=== PATIENT | female | born 1935 | race Caucasian/White ===

== ENCOUNTER 2016-12-15 11:07 | Emergency (ER) | payer MEDICARE ==
[~2016-12-15] VITALS: Ht 170.1 cm; Wt 72.6 kg
[~2016-12-15 11:07] MED LIST: ASPIRIN CHEWABL81 MG PO; LIPITOR10 MG PO; SYNTHROID,LEV125 MCG PO; SYNTHROID25 MCG PO; ZETIA10 MG PO
[2016-12-15 12:11] LABS: BASO % 0.5 % (0.0-1.0); EOS % 0.5 % (1.0-4.0); HEMATOCRIT 38.9 % (37.0-47.0); HEMOGLOBIN 12.7 g/dl (12.0-16.0); IG # 0.1 10*3/uL (0.0-0.1); LYMPH # 1.7 10*3/uL (1.3-4.4); LYMPH % 23.4 % (27.0-41.0); MEAN CELL VOLUME 95.6 fl (81.0-99.0); MEAN CORPUSCULAR HGB 31.2 pg (27.0-31.0); MEAN CORPUSCULAR HGB CONC 32.6 g/dl (33.0-37.0); MEAN PLATELET VOLUME 9.9 fl (9.6-12.3); MONO # 0.9 10*3/uL (0.1-1.0); MONO % 12.2 % (3.0-9.0); NEUT # 4.6 10*3/uL (2.3-7.9); NEUT % 62.5 % (47.0-73.0); PLATELET COUNT AUTOMATED 208 10*3/uL (130-400); RED BLOOD COUNT 4.07 10*6/uL (4.10-5.10); RED CELL DISTRI WIDTH 12.5 % (0-14.5); WHITE BLOOD COUNT 7.4 10*3/uL (4.8-10.8)
[2016-12-15 12:31] LABS: ALBUMIN 3.4 gm/dl (3.1-4.5); ALKALINE PHOSPHATASE 101 U/L (45-117); BILIRUBIN, TOTAL 0.3 mg/dl (0.2-1.0); BUN 12 mg/dl (7-24); CARBON DIOXIDE 29 mmol/L (21-32); CHLORIDE 105 mmol/L (98-107); CPK 61 U/L (26-192); EST GLOM FILT AFRICAN AMERICAN > 60 ml/min; GLUCOSE 94 mg/dL (65-99); POTASSIUM 4.1 mmol/L (3.5-5.1); SGOT/AST 10 IU/L (3-35); SGPT/ALT 17 U/L (12-78); SODIUM 141 mmol/L (136-145); TOTAL PROTEIN 7.3 gm/dL (6.4-8.2)
[2016-12-15 12:39] LABS: C-REACTIVE PROTEIN < 0.29 MG/DL (0-0.3); TROPONIN I < 0.015 ng/ml (<0.045)
== END 2016-12-15 14:47 | disposition home or self-care (01) ==
LOC: ED 11:07
PROVIDERS: Internal Medicine
DX: M79.605 Pain in left leg (principal); F03.90 Unspecified dementia, unspecified severity, without behavioral disturbance, psychotic disturbance, mood disturbance, and anxiety; Z79.82 Long term (current) use of aspirin; Z79.899 Other long term (current) drug therapy

== ENCOUNTER 2017-08-31 12:14 | Emergency (ER) | payer MEDICARE ==
[~2017-08-31] VITALS: Ht 170.1 cm; Wt 74.8 kg
== END 2017-08-31 14:50 | disposition home or self-care (01) ==
LOC: ED 12:14
DX: K59.00 Constipation, unspecified (principal); E03.9 Hypothyroidism, unspecified; Z79.899 Other long term (current) drug therapy; Z79.82 Long term (current) use of aspirin

== ENCOUNTER 2017-09-21 21:57 | Inpatient (IN) | payer MEDICARE ==
[~2017-09-21] VITALS: Ht 165.1 cm; Wt 77.1 kg
--- NOTE | ~2017-09-21 | CON ---
[place], [place] REPORT OF CONSULTATION NAME: SYD MONTGOMERY UNIT #: [id number] ROOM: 523 DOCTOR: KERA RODRIGUEZ MD BIRTHDATE: [birth year] DOS: 09/24/2017 CHIEF COMPLAINT: The patient was nonverbal at this time. SUMMARY OF THE VISIT: The patient was interviewed once again in her room. She was resting quietly in bed as she had been previously. At this time, she is much more somnolent than she did appear at my last consult. I did call her name and she made eye contact, but she made no effort this time to speak. She was not agitated in any way. There was no mood lability noted. I see nothing suggestive of auditory or visual hallucinations. She does look perplexed and bewildered and does seem confused. Mental status is limited due to her lack of cooperation and overall level of somnolence. PLAN: I will go ahead and increase the Exelon patch from 4.6 to 9.5 mg a day as this will not impact on her in any way regarding sedation or somnolence. I will lower her Risperdal down to just 0.5 at bedtime. This should lessen the daytime sedation and make her much more interactive. How much of this is medication related versus medicine problem related, it is unclear. Should you require further intervention, feel free to contact me. KERA RODRIGUEZ MD CM:CONSTR:REPORT OF CONSULTATION 1025 09/25/17 0250 interface
--- NOTE | ~2017-09-21 | PR ---
[place], [place] PROGRESS NOTE NAME: SYD MONTGOMERY UNIT #: [id number] ROOM: 523 DOCTOR: RYAN LUCIA MD BIRTHDATE: [birth year] DOS: SUBJECTIVE: The patient is doing well this morning. She knows that she is in the hospital and was eating her breakfast. OBJECTIVE: VITAL SIGNS: Graphic trend shows a pressure 128/70, pulse 103, respirations 20, temperature 100.5. LUNGS: Diminished breath sounds. No wheezes, rales or rhonchi heard. HEART: Regular. ABDOMEN: Obese, soft, nontender. EXTREMITIES: Without any edema. ASSESSMENT AND PLAN: 1. Metabolic encephalopathy, possibly from underlying urinary tract infection. The patient is on IV antibiotics. 2. 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 The patient is agreeable to go to rehabilitation. Social service is looking into placement. RYAN LUCIA MD CM:PNTRANS [id number] RYAN LUCIA MD 09/24/17 0946 interface
--- NOTE | ~2017-09-21 | PR ---
[place], [place] PROGRESS NOTE NAME: SYD MONTGOMERY UNIT #: [id number] ROOM: 523 DOCTOR: RYAN LUCIA MD BIRTHDATE: [birth year] DOS: SUBJECTIVE: The patient is doing fine without any complaints other than some diarrhea this morning. OBJECTIVE: VITAL SIGNS: Graphic trend shows blood pressure of 134/54, pulse of 91, respirations 20, temperature 98.5. LUNGS: Diminished breath sounds, clear. HEART: Regular. ABDOMEN: Obese, soft. EXTREMITIES: Without any edema. LABORATORY DATA: Urine culture shows E. coli, which is sensitive to cephalosporins as well as Cipro. ASSESSMENT AND PLAN: 1. Urinary tract infection, on IV antibiotics. 2. Metabolic encephalopathy, which is resolving. 3. Adult failure to thrive. She will go to [facility] today. 4. Diarrhea, possibly from PENICILLIN. Stool titer will be sent. RYAN LUCIA MD CM:PNTRANS [id number] RYAN LUCIA MD 09/25/17 0950 interface
--- NOTE | ~2017-09-21 | WRIGHTHP ---
[place], [place] PATIENT HISTORY AND PHYSICAL EXAM NAME: SYD MONTGOMERY [facility] #: [id number] UNIT #: [id number] ROOM: 523 DOCTOR: SCOTTY MACKAY MD BIRTHDATE: [birth year] DOS: 09/22/2017 HISTORY OF PRESENT ILLNESS: The patient is an 82-year-old female with a past medical history of: 1. Old age and advanced failure to thrive. 2. History of Alzheimer's type dementia. 3. Benign essential hypertension. 4. Hypothyroidism. 5. Coronary artery disease and stent placement. The patient lives at home with help from her family. She is bedridden and unable to stand up. According to family, she had a mental status change where she became more lethargic and weaker and was brought to the Emergency Department. The patient's medical workup was normal, but she was admitted for mental status changes and for [facility] facility placement. The patient is unable to provide much history after admission, but no complaints of recent chest pain, shortness of breath, GI or urinary symptoms. According to the family, just increased weakness and lethargy. REVIEW OF SYSTEMS: LUNGS: No increasing shortness of breath or wheezing. GASTROINTESTINAL: No nausea, vomiting, diarrhea, constipation. CARDIOVASCULAR: No chest pain or palpitations. FAMILY HISTORY: Noncontributory. ALLERGIES: No known drug allergies. SOCIAL HISTORY: No recent history of smoking cigarettes, alcohol and drug abuse. MEDICATIONS: Rivastigmine, ropinirole, risperidone, simvastatin, aspirin, levothyroxine, Zofran. PHYSICAL EXAMINATION: GENERAL: Awake, unable to provide any history, generalized weakness and advanced disability. LABORATORY DATA: TSH normal. Ammonia level was normal. Troponin I level was normal. Urinalysis without significant signs of infection. Normal serum electrolytes, bilirubin, liver enzymes. Lactic acid level was normal. No leukocytosis. Hemoglobin 11.6. IMPRESSION AND PLAN: 1. Old age and advanced failure to thrive with acute mental status change. The patient has been admitted, started on hydration with normal saline and will be encouraged to eat. We will take bedsore precautions including every 2 hour turning, using air mattress and I am consulting case management to get her to a [facility] facility. 2. Hypothyroidism. The patient would be continued on thyroid supplements. [place], [place] PATIENT HISTORY AND PHYSICAL EXAM NAME: SYD MONTGOMERY UNIT #: [id number] ROOM: 523 DOCTOR: THOMPSON MANCUSO,SCOTTY [place] BIRTHDATE: [birth year] 3. Late onset Alzheimer's type dementia. The patient will be continued on rivastigmine. 4. Mixed hyperlipidemia, treated with simvastatin. 5. Hypothyroidism, treated with thyroid supplements. SCOTTY MACKAY MD CM:HISPHYS:PATIENT HISTORY AND PHYSICAL EXAMINATION 23 [phone] SCOTTY MACKAY MD 09/22/172043 interface
--- NOTE | ~2017-09-21 | CON ---
[place], [place] REPORT OF CONSULTATION NAME: SYD MONTGOMERY UNIT #: [id number] ROOM: 523 DOCTOR: KERA RODRIGUEZ MD BIRTHDATE: [birth year] DOS: 09/22/2017 CHIEF COMPLAINT: "I got into the hospital yesterday." HISTORY OF PRESENT ILLNESS: This is an 82-year-old white female who presented to the Emergency Room via ambulance from her home. She was accompanied by her son and her nurse's aide. She lives at home with her son. In the evening prior to admission, the patient became weaker than normal and also complained of jaw swelling and pain. She is admitted to rule out organic factors and to stabilize on medication. The patient is found to be rather altered in her mental status and is having significant confusion and memory impairment. The patient does have a history of Alzheimer's dementia, hypothyroidism, restless leg syndrome, hyperlipidemia. MENTAL STATUS: The patient is alert and oriented to person, place, but not time. She has spotty memory loss. At times, she is able to accurately give details such as she was admitted into the hospital yesterday, but at the same time, there is a significant delay in response and she has significant thought processing difficulties. At times, I would wait minutes for her to speak and even then she would give inappropriate responses. She is grossly confused. I see no agitation or aggression. I see no mood lability. I see no auditory or visual hallucinations, no delusions, no paranoia. As mentioned previously, short term memory is exceedingly poor for most things. DIAGNOSIS: Psychiatrically, Alzheimer's dementia. PLAN: I will discontinue her Exelon 3 mg daily in lieu of Exelon patch 4.6 mg daily. I believe you can titrate this more rapidly and get significant benefit with it. I have also ordered some lab work to rule out other organic factors that could be potentially impacting negatively on her cognition. Should you require any further intervention feel free to contact me at any time. KERA RODRIGUEZ MD CM:CONSTR:REPORT OF CONSULTATION 0923 09/22/17 1002 interface
--- NOTE | ~2017-09-21 | PR ---
[place], [place] PROGRESS NOTE NAME: SYD MONTGOMERY UNIT #: [id number] ROOM: 523 DOCTOR: SCOTTY MACKAY MD BIRTHDATE: [birth year] DOS: 09/23/2017 SUBJECTIVE: The patient is more awake, alert and her son is feeding her dinner. OBJECTIVE: GENERAL APPEARANCE: The patient is alert and oriented x 3, in no visible distress. The patient has generalized weakness and disability. VITAL SIGNS: Blood pressure 138/67, heart rate 97 beats per minute, breathing 20 times per minute, temperature 99.6 degrees Fahrenheit. HEENT AND NECK: Exam within normal limits. CARDIOVASCULAR SYSTEM: Heart rate is regular in rate and rhythm. S1 and S2 normally audible. LUNGS: Clear to auscultation. ABDOMEN: Soft, nontender. No obvious organomegaly. Bowel sounds are present. EXTREMITIES: Without significant cyanosis or edema. IMPRESSION: 1. Old age and adult failure to thrive with acute mental status change. The patient waiting for transfer to [facility] facility for continued rehabilitation. Otherwise, she lives at home with help from her family. 2. Adult failure to thrive. We are taking bedsore precautions. 3. Hypothyroidism, treated with thyroid supplements. 4. Late onset Alzheimer's type dementia. The patient continued on rivastigmine. 5. Mixed hyperlipidemia, treated with simvastatin. 6. Hypothyroidism, treated with thyroid supplements. 7. Urinary tract infection with urine cultures growing heavy gram-negative bacilli. I will start the patient on antibiotics because this may be the reason for altered mental status. SCOTTY MACKAY MD CM:PNTRANS [phone] SCOTTY MACKAY MD 09/23/[id number] interface
--- NOTE | ~2017-09-21 | DS ---
[place], [place] DISCHARGE SUMMARY NAME: SYD MONTGOMERY UNIT #: [id number] ROOM: 523 DOCTOR: RYAN LUCIA MD BIRTHDATE: [birth year] DOS: 09/25/2017 DATE OF ADMISSION: 09/22/17 DATE OF DISCHARGE: 09/25/17 DIAGNOSES: 1. Metabolic encephalopathy. 2. Urinary tract infection with Escherichia coli. 3. Adult failure to thrive. 4. Alzheimer dementia, late onset. 5. Diarrhea, possibly PENICILLIN induced. 6. C. diff titer has been sent. HOSPITAL COURSE: This patient is 82 years old. Please refer to H and P dictated by Dr. Cornejo for further details. She was admitted, was placed on IV antibiotics and after that the patient was arranged for PT, OT consultation as well as social service for placement. She lives at home with her son. The patient is stable. Her mental status is back to her baseline and she seems to be stable and can be discharged back to the [facility]. DISCHARGE MEDICATIONS: Will be Ceftin 250 twice daily for 5 days. C. diff titer, aspirin 81 daily, levothyroxine 125 mcg daily, rivastigmine 3 mg daily, Risperdal 1 mg at bedtime, Pravachol 80 daily, Requip 0.5 at bedtime, Risperdal 0.5 mg in the morning. Ondansetron 4 mg daily p.r.n. DIET: Regular. PT/OT consult. RYAN LUCIA MD CM:DISCHARG 0929 1003 RYAN LUCIA MD 09/26/17 1354 interface
[2017-09-21 22:08] VITALS: BP 141/50
[2017-09-21] MEDS ORDERED: RIVASTIGMINE TAR3 M1 PO (22:21)
[2017-09-21] MEDS ORDERED: RISPERDAL1 M1 PO (22:21)
[2017-09-21] MEDS ORDERED: PRAVACHOL80 M1 PO (22:22)
[2017-09-21] MEDS ORDERED: ROPINIROLE HYD0.5 MG PO (22:23)
[2017-09-21 23:05] LABS: BASO % 0.4 % (0.0-1.0); EOS % 0.4 % (1.0-4.0); HEMATOCRIT 35.3 % (37.0-47.0); HEMOGLOBIN 11.6 g/dl (12.0-16.0); LYMPH # 2.4 10*3/uL (1.3-4.4); LYMPH % 32.4 % (27.0-41.0); MEAN CELL VOLUME 96.2 fl (81.0-99.0); MEAN CORPUSCULAR HGB 31.6 pg (27.0-31.0); MEAN CORPUSCULAR HGB CONC 32.9 g/dl (33.0-37.0); MEAN PLATELET VOLUME 10.2 fl (9.6-12.3); MONO # 1.2 10*3/uL (0.1-1.0); MONO % 15.6 % (3.0-9.0); NEUT # 3.7 10*3/uL (2.3-7.9); NEUT % 50.7 % (47.0-73.0); PLATELET COUNT AUTOMATED 197 10*3/uL (130-400); RED BLOOD COUNT 3.67 10*6/uL (4.10-5.10); WHITE BLOOD COUNT 7.4 10*3/uL (4.8-10.8)
[2017-09-21 23:21] LABS: ALBUMIN 3.5 gm/dl (3.1-4.5); ALKALINE PHOSPHATASE 93 U/L (45-117); BUN 13 mg/dl (7-24); CHLORIDE 106 mmol/L (98-107); CREATININE 0.73 mg/dL (0.55-1.02); POTASSIUM 4.2 mmol/L (3.5-5.1); SGOT/AST 15 IU/L (3-35); SGPT/ALT 20 U/L (12-78); SODIUM 141 mmol/L (136-145); TOTAL PROTEIN 7.1 gm/dL (6.4-8.2)
[2017-09-22] VITALS (7 sets, daily range): BP systolic 101–146; BP diastolic 51–93
[2017-09-22 00:53] LABS: BILIRUBIN NEGATIVE (NEGATIVE); BLOOD 1+ (NEGATIVE); COLOR YELLOW (YELLOW); GLUCOSE NEGATIVE (NEGATIVE); KETONE NEGATIVE (NEGATIVE); LEUKO ESTERASE TRACE (NEGATIVE); NITRITE NEGATIVE (NEGATIVE); SPECIFIC GRAVITY <= 1.005 (1.005-1.030); UROBILINOGEN 0.2 E.U./dl (0.2-1.0)
[2017-09-22 01:11] LABS: CLARITY SL CLOUDY (CLEAR); EPITHELIAL CELLS 40-45
[2017-09-22] MEDS ORDERED: RISPERDAL0.5 MG PO (03:40)
[2017-09-22] MEDS ORDERED: ZOFRAN4 MG PO (03:41)
[2017-09-22 12:56] LABS: VITAMIN D, 25-HYDROXY 7.8 ng/mL (30-100)
[2017-09-23] VITALS: BP 117/50
[2017-09-23 04:00] VITALS: BP 112/68
[2017-09-23 07:46] VITALS: BP 134/58
[2017-09-23 12:00] VITALS: BP 119/55
[2017-09-23 16:00] VITALS: BP 138/67
[2017-09-23 20:00] VITALS: BP 128/70
[2017-09-24 08:00] VITALS: BP 121/55
[2017-09-24 16:00] VITALS: BP 152/74
[2017-09-24 20:00] VITALS: BP 135/55
[2017-09-25] VITALS: BP 130/56
[2017-09-25 08:00] VITALS: BP 134/54
[2017-09-25] MEDS ORDERED: CEFUROXIME AXE250 MG PO (09:24)
== END 2017-09-25 13:38 | disposition other institution (70) | DRG 689 ==
LOC: ED 21:57 → EDHOLD 09-22 01:44 → 5E 09-22 01:44
PROVIDERS: Family Medicine; Psychiatry & Neurology Psychiatry
DX: N39.0 Urinary tract infection, site not specified (principal); G93.41 Metabolic encephalopathy; K52.1 Toxic gastroenteritis and colitis; L89.301 Pressure ulcer of unspecified buttock, stage 1; G30.1 Alzheimer's disease with late onset; F02.80 Dementia in other diseases classified elsewhere, unspecified severity, without behavioral disturbance, psychotic disturbance, mood disturbance, and anxiety; E03.9 Hypothyroidism, unspecified; L89.601 Pressure ulcer of unspecified heel, stage 1; I10 Essential (primary) hypertension; I25.10 Atherosclerotic heart disease of native coronary artery without angina pectoris; E78.2 Mixed hyperlipidemia; T36.0X5A Adverse effect of penicillins, initial encounter; R62.7 Adult failure to thrive; B96.20 Unspecified Escherichia coli [E. coli] as the cause of diseases classified elsewhere; Z90.49 Acquired absence of other specified parts of digestive tract; Z90.710 Acquired absence of both cervix and uterus; Z95.5 Presence of coronary angioplasty implant and graft; Z82.49 Family history of ischemic heart disease and other diseases of the circulatory system; Z79.899 Other long term (current) drug therapy; Y92.89 Other specified places as the place of occurrence of the external cause

== ENCOUNTER 2018-02-21 12:06 | Emergency (ER) | payer MEDICARE ==
[~2018-02-21] VITALS: Wt 77.1 kg
[~2018-02-21 12:06] MED LIST changes: +CEFUROXIME AXE250 MG PO; +PRAVACHOL80 M1 PO; +RISPERDAL0.5 MG PO; +RISPERDAL1 M1 PO; +RIVASTIGMINE TAR3 M1 PO; +ROPINIROLE HYD0.5 MG PO; +ZOFRAN4 MG PO
[2018-02-21 12:47] LABS: BILIRUBIN NEGATIVE (NEGATIVE); BLOOD NEGATIVE (NEGATIVE); CLARITY CLEAR (CLEAR); COLOR YELLOW (YELLOW); GLUCOSE NEGATIVE (NEGATIVE); KETONE NEGATIVE (NEGATIVE); LEUKO ESTERASE NEGATIVE (NEGATIVE); NITRITE NEGATIVE (NEGATIVE); UROBILINOGEN 0.2 E.U./dl (0.2-1.0)
[2018-02-21 12:53] LABS: EPITHELIAL CELLS 0-2; WBC 0-2 wbc/hpf (0-5)
[2018-02-21 12:56] LABS: BASO % 0.5 % (0.0-1.0); EOS % 0.5 % (1.0-4.0); HEMATOCRIT 40.6 % (37.0-47.0); LYMPH # 2.1 10*3/uL (1.3-4.4); LYMPH % 25.3 % (27.0-41.0); MEAN CELL VOLUME 96.9 fl (81.0-99.0); MEAN PLATELET VOLUME 9.8 fl (9.6-12.3); MONO # 0.9 10*3/uL (0.1-1.0); MONO % 10.5 % (3.0-9.0); NEUT # 5.1 10*3/uL (2.3-7.9); NEUT % 62.2 % (47.0-73.0); PLATELET COUNT AUTOMATED 198 10*3/uL (130-400); RED BLOOD COUNT 4.19 10*6/uL (4.10-5.10); RED CELL DISTRI WIDTH 13.2 % (0-14.5); WHITE BLOOD COUNT 8.3 10*3/uL (4.8-10.8)
[2018-02-21 13:10] LABS: ALBUMIN 3.7 gm/dl (3.1-4.5); ALKALINE PHOSPHATASE 122 U/L (45-117); BUN 11 mg/dl (7-24); CHLORIDE 104 mmol/L (98-107); CREATININE 0.65 mg/dL (0.55-1.02); POTASSIUM 3.9 mmol/L (3.5-5.1); SGOT/AST 12 IU/L (3-35); SGPT/ALT 21 U/L (12-78); SODIUM 142 mmol/L (136-145); TOTAL PROTEIN 7.7 gm/dL (6.4-8.2)
[2018-02-21] MEDS ORDERED: KEFLEX500 M1 PO (17:47)
== END 2018-02-21 17:51 | disposition home or self-care (01) ==
LOC: ED 12:06
PROVIDERS: Emergency Medicine
DX: L97.529 Non-pressure chronic ulcer of other part of left foot with unspecified severity (principal); E03.9 Hypothyroidism, unspecified; F03.90 Unspecified dementia, unspecified severity, without behavioral disturbance, psychotic disturbance, mood disturbance, and anxiety; Z90.49 Acquired absence of other specified parts of digestive tract; Z90.710 Acquired absence of both cervix and uterus; Z98.890 Other specified postprocedural states; Z79.899 Other long term (current) drug therapy; Z79.82 Long term (current) use of aspirin